=== PATIENT | female | born 1995 | race Caucasian/White ===

== ENCOUNTER → 2017-11-13 | Outpatient (CLI) | payer OTHER ==
[~2017-11-13] MED LIST: IBUPROFEN 800800 MG PO
--- NOTE | 2017-11-13 16:30 | 2DMMODE ---
[place] [address] 2 D/M-MODE ECHOCARDIOGRAM Name: BARFIELDSAHARA Room: [facility]#: [id number] Admission: 11/13/17 Attend Phys: Saurabh Pulido MD Discharge: Date of : 89 Date of Service: 11/13/17 1629 Report #: [id number] THIS REPORT FOR: //name// APPROVED REPORT Study performed: 11/13/2017 10:29:59 EXAM: Comprehensive 2D, Doppler, and color-flow Echocardiogram Patient Location: Out-Patient BSA: 1.81 HR: 69 bpm BP: 105/62 mmHg Other Information Study Quality: Good Indications Bicuspid Aortic Valve 2D Dimensions LVEF(%): 57.71 (>50%) IVSd: 9.08 (7-11mm) LVOT Diam: 20.68 (18-24mm) LVDd: 41.25 mm PWd: 11.51 (7-11mm) Ascending Ao: 35.06 (22-36mm) LVDs: 28.86 (25-40mm) Aortic Root: 31.44 mm Cordova's LVEF: 57.71 % Volumes Left Atrial Volume (Systole) LA ESV Index: 17.00 mL/m2 Aortic Valve AoV Peak Robby.: 1.43 m/s AO Peak Gr.: 8.18 mmHg LVOT Max P.87 mmHg AO Mean Gr.: 5.10 mmHg LVOT Mean P.50 mmHg LVOT Max V: 0.85 m/s AO V2 VTI: 27.64 cm LVOT Mean V: 0.56 m/s JAYDON (VTI): 1.97 cm2 LVOT V1 VTI: 16.21 cm Mitral Valve E/A Ratio: 1.55 MV Decel. Time: 229.99 ms MV E Max Robby.: 0.84 m/[place] [address] 2 D/M-MODE ECHOCARDIOGRAM Name: DANIEL BARFIELDSAHARA Mcfarlane Room: [facility]#: [id number] Admission: 11/13/17 Attend Phys: Saurabh Pulido MD Discharge: Date of : 89 Date of Service: 11/13/17 1629 Report #: [id number] MV PHT: 66.70 ms MVA (PHT): 3.30 cm2 TDI E/Lateral E': 4.00 E/Medial E': 5.60 Medial E' Robby.: 0.15 m/s Lateral E' Robby.: 0.21 m/s Pulmonary Valve PV Peak Robby.: 0.90 m/s PV Peak Gr.: 3.23 mmHg Left Ventricle The left ventricle is normal size. There is normal LV segmental wall motion. There is normal left ventricular wall thickness. Left ventricular systolic function is normal. The left ventricular ejection fraction is within the normal range. LVEF is 55-60%. The left ventricular diastolic function is normal. Right Ventricle The right ventricle is normal size. The right ventricular systolic function is normal. Atria The left atrium size is normal. The right atrium size is normal. Aortic Valve Aortic valve appears bicuspid. No aortic regurgitation is present. There is no aortic valvular stenosis. Mitral Valve The mitral valve is normal in structure. There is no mitral valve regurgitation noted. No evidence of mitral valve stenosis. Tricuspid Valve The tricuspid valve is normal in structure. There is no tricuspid valve regurgitation noted. Pulmonic Valve The pulmonary valve is normal in structure. Mild pulmonic regurgitation. Great Vessels The aortic root is normal in size. The ascending aorta is normal in size. IVC is normal in size and collapses with >50% [place] [address] 2 D/M-MODE ECHOCARDIOGRAM Name: SAHARA BARFIELD Room: [facility]#: [id number] Admission: 11/13/17 Attend Phys: Saurabh Pulido MD Discharge: Date of : 89 Date of Service: 11/13/17 1629 Report #: [id number] Pericardium There is no pericardial effusion. <Conclusion> LVEF is 55-60%. There is normal LV segmental wall motion. Aortic valve appears bicuspid. No aortic regurgitation is present. There is no aortic valvular stenosis. The ascending aorta is normal in size. <ELECTRONICALLY SIGNED> By: Alcon Marcelo MD, FACC 11/13/17 1629 1629 1629 Alcon Marcelo MD, FACC /INF
== END ==
LOC: M.CT 10-18 10:09 → M.CRD 11-05 09:30 → M.CT 11-05 09:30
DX: I37.1 Nonrheumatic pulmonary valve insufficiency (principal); I71.2 Thoracic aortic aneurysm, without rupture

== ENCOUNTER 2019-05-06 08:18 | Emergency (ER) | payer OTHER ==
[~2019-05-06] VITALS: Ht 172.7 cm; Wt 59.0 kg
[2019-05-06] MEDS ORDERED: SERTRALINE HCL100 MG PO (08:44)
[2019-05-06] MEDS ORDERED: METRONIDAZOLE500 M4 PO (08:52)
[2019-05-06] MEDS ORDERED: BACTRIM DS TAB1 EAC1 PO (08:53)
[2019-05-06 09:00] LABS: URINE BILIRUBIN NEGATIVE (Negative); URINE BLOOD NEGATIVE (Negative); URINE CLARITY CLEAR; URINE COLOR YELLOW; URINE GLUCOSE-RANDOM NEGATIVE (Negative); URINE KETONES NEGATIVE (Negative); URINE LEUKOCYTES-REFLEX NEGATIVE (Negative); URINE NITRITE-REFLEX NEGATIVE (Negative); URINE PROTEIN NEGATIVE (Negative)
[2019-05-06 09:29] LABS: ABSOLUTE EOSINOPHILS 0.1 thou/uL (0.0-0.7); ABSOLUTE LYMPHOCYTES 0.8 thou/uL (0.8-5.3); ABSOLUTE MONOCYTES 0.6 thou/uL (0.0-1.2); ABSOLUTE NEUTROPHILS 6.4 thou/uL (1.6-8.1); BASOPHILS 0.2 %; EOSINOPHILS 1.2 %; HEMATOCRIT 39.9 % (37.0-47.0); HEMOGLOBIN 13.6 gm/dL (12.0-15.0); LYMPHOCYTES 10.1 %; MCH 30.5 pg (26.0-34.0); MCV 89.8 fL (80.0-100.0); MONOCYTES 8.1 %; MPV 7.2 fl. (7.2-11.1); NUCLEATED RBCS 0 /100WBC; PLATELET COUNT* 319 thou/uL (150-400); POLYS 80.4 %; RBC 4.45 mil/uL (4.20-5.00); RDW-CV 13.9 % (10.5-14.5); WBC 7.9 thou/uL (4.0-11.0)
[2019-05-06 09:36] LABS: CALCIUM 8.5 mg/dL (8.5-10.1); CREATININE 0.9 mg/dL (0.6-1.3); POTASSIUM 3.3 mmol/L (3.5-5.1)
[2019-05-06 09:40] LABS: ALBUMIN 3.8 g/dL (3.4-5.0); TOTAL BILIRUBIN 0.5 mg/dL (<0.1-1.0); TOTAL PROTEIN 7.6 g/dL (6.4-8.2)
[2019-05-06] MEDS ORDERED: ZOFRAN ODT4 MG SUBLING (10:45)
[2019-05-06 11:05] VITALS: BP 107/59
== END 2019-05-06 11:05 | disposition home or self-care (01) ==
LOC: M.ERS 08:18
PROVIDERS: Family Medicine
DX: R11.2 Nausea with vomiting, unspecified (principal); R10.11 Right upper quadrant pain